=== PATIENT | female | born 1945 | race Caucasian/White ===

== ENCOUNTER 2018-06-24 13:58 | Emergency (ER) | payer MEDICARE ==
[2018-06-24 15:04] LABS: BASO # 0.1 10^3/uL (0.0-0.2); BASO % 0.7 % (0.0-1.0); EOS # 0.4 10^3/uL (0.0-0.50); EOS % 3.9 % (0.0-3.0); HEMATOCRIT 36.3 % (36.0-47.0); HEMOGLOBIN 11.6 g/dl (12.0-15.5); IMMATURE GRANULOCYTE % 0.5 % (0-3.0); LYMPH # 3.8 10^3/uL (1.5-4.5); LYMPH % 41.8 % (24.0-44.0); MEAN CORPUSCULAR HEMOGLOBIN 30.4 pg (27.0-33.0); MONO # 0.4 10^3/uL (0.0-0.8); MONO % 4.6 % (0.0-5.0); NEUTROPHILS # 4.4 10^3/uL (1.8-7.7); NEUTROPHILS % 48.5 % (36.0-66.0); PLATELET COUNT, AUTOMATED 291 10^3/uL (150-450); RED BLOOD COUNT 3.82 10^6/uL (4.00-5.40); RED CELL DISTRIBUTION WIDTH 13.2 % (11.5-14.5); WHITE BLOOD COUNT 9.1 10^3/uL (4.0-10.0)
[2018-06-24 15:18] LABS: ANION GAP 7 MEQ/L (8-16); BLOOD UREA NITROGEN 24 MG/DL (7-18); CALCIUM LEVEL 9.7 MG/DL (8.8-10.2); CARBON DIOXIDE LEVEL 25 MEQ/L (21-32); CHLORIDE LEVEL 110 MEQ/L (98-107); CK-MB VALUE MASS 3.8 NG/ML (<3.6); CPK CREATINE PHOSPHOKINASE 158 U/L (26-192); CREATININE FOR GFR 1.65 MG/DL (0.55-1.30); GLOMERULAR FILTRATION RATE 32.6 (>39); GLUCOSE, FASTING 123 MG/DL (70-100); NT-PRO BNP 639 PG/ML (<125); POTASSIUM SERUM 4.6 MEQ/L (3.5-5.1); SODIUM LEVEL 142 MEQ/L (136-145); TROPONIN I < 0.02 NG/ML (< 0.10)
[2018-06-24] MEDS: MORPHINE 2 MG/ML 1ML SYRINGE (J2270) IV (15:43)
[2018-06-24] MEDS: ONDANSETRON 4MG/2ML VIAL (J2405) IV (15:43)
[2018-06-24] MEDS ORDERED: ISOVUE-370 76% 100ML VIAL (Q9967) As Ordered (16:45)
[2018-06-24] MEDS: NORCO 5/325MG TABLET (BULK FOR ED) PO (20:00)
== END 2018-06-24 20:16 | disposition home or self-care (01) ==
LOC: M ED 13:58
DX: S42.024A Nondisplaced fracture of shaft of right clavicle, initial encounter for closed fracture (principal); S09.90XA Unspecified injury of head, initial encounter; W01.0XXA Fall on same level from slipping, tripping and stumbling without subsequent striking against object, initial encounter; Y92.89 Other specified places as the place of occurrence of the external cause; D49.7 Neoplasm of unspecified behavior of endocrine glands and other parts of nervous system; R79.89 Other specified abnormal findings of blood chemistry; I50.9 Heart failure, unspecified; I67.82 Cerebral ischemia; R06.02 Shortness of breath; E11.9 Type 2 diabetes mellitus without complications; I11.0 Hypertensive heart disease with heart failure; E78.5 Hyperlipidemia, unspecified; Z79.899 Other long term (current) drug therapy; Z79.82 Long term (current) use of aspirin; Z79.84 Long term (current) use of oral hypoglycemic drugs
CPT/HCPCS: J2405